=== PATIENT | male | born 1990 | race Hispanic/Latino ===

== ENCOUNTER 2017-12-15 15:14 | Emergency (ER) | payer SELFPAY ==
[2017-12-15] MEDS ORDERED: Lidocaine 1% w/Epinephrine 1:100K 30 ML VIAL ONE (15:26)
[2017-12-15] MEDS ORDERED: Adacel (T-DAP) 0.5 ML VIAL ONE (15:26)
[2017-12-15] MEDS ORDERED: Bacitracin Zinc 1 Packet ONE (15:50)
== END 2017-12-15 15:58 | disposition home or self-care (01) ==
LOC: BURERS 15:14
DX: S71.111A Laceration without foreign body, right thigh, initial encounter (principal); F17.210 Nicotine dependence, cigarettes, uncomplicated; Z23 Encounter for immunization; W26.0XXA Contact with knife, initial encounter
CPT/HCPCS: 12001; 90471; 90715; J2001